=== PATIENT | female | born 1950 | race Caucasian/White ===

== ENCOUNTER 2017-01-13 09:19 | Outpatient (CLI) | payer MEDICARE, OTHER ==
[2017-01-13 18:06] LABS: CREATININE 0.9 mg/dL (0.4-1.0)
== END 2017-01-13 09:20 | disposition home or self-care (01) ==
LOC: LAB.F 09:19
PROVIDERS: ATTEND Internal Medicine Rheumatology
DX: N28.9 Disorder of kidney and ureter, unspecified (principal)
CPT/HCPCS: 36415; 82565; 84520

== ENCOUNTER 2023-06-19 08:00 | Outpatient (CLI) | payer MEDICARE, OTHER | END 2023-06-19 23:59 | disposition home or self-care (01) | LOC: LAB.S 08:00 | PROVIDERS: ATTEND Emergency Medicine | DX: R11.2 Nausea with vomiting, unspecified (principal); Z20.822 Contact with and (suspected) exposure to COVID-19 ==

== ENCOUNTER 2023-06-20 12:39 | Emergency (ER) | payer MEDICARE, OTHER ==
[2023-06-20 13:52] LABS: BASOPHILS % (AUTO) 0.2 %; EOSINOPHILS % (AUTO) 0.1 %; HGB - HEMOGLOBIN 13.6 g/dL (12.0-16.0); LYMPHOCYTES # (AUTO) 2.1 10^3/uL (1.5-3.5); LYMPHOCYTES % (AUTO) 13.1 %; MEAN CORPUSCULAR VOLUME 94.1 fL (81.0-99.0); MEAN PLATELET VOLUME 9.3 fL (7.9-10.8); MONOCYTES # (AUTO) 1.1 10^3/uL (0.0-1.0); MONOCYTES % (AUTO) 6.5 %; NEUTROPHILS # (AUTO) 12.9 10^3/uL (1.5-6.6); NEUTROPHILS % (AUTO) 79.6 %; PLT - PLATELET COUNT 348 10^3/uL (130-450); RED BLOOD COUNT 4.25 10^6/uL (4.20-5.40); RED CELL DISTRIBUTION WIDTH 12.7 % (12.0-15.0); WHITE BLOOD COUNT 16.2 x10^3/uL (4.8-10.8)
[2023-06-20 14:05] LABS: ALBUMIN 4.7 g/dL (3.2-5.5); ALBUMIN/GLOBULIN RATIO 1.7 (1.0-2.2); BILIRUBIN,TOTAL 0.7 mg/dL (0.2-1.0); CALCIUM 10.3 mg/dL (8.5-10.3); CREATININE 1.9 mg/dL (0.6-1.3); POTASSIUM 3.9 mmol/L (3.5-4.5); TOTAL PROTEIN 7.5 g/dL (6.4-8.9)
[2023-06-20] MEDS ORDERED: PROMETHAZINE INJ 12.5 MG in SODIUM CHLORIDE 0.9% 50 ML IV STA (15:05)
[2023-06-20] MEDS ORDERED: SODIUM CHLORIDE 0.9% 1,000 ML IV STA (15:05)
--- NOTE | 2023-06-20 15:06 | ED Physician Documentation ---
PD HPI ABD PAIN - Stated complaint Stated Complaint: VOMITING,LETHARGIC - Chief complaint Chief Complaint: Abd Pain - History obtained from History obtained from: Patient - Additional information Additional information: 73-year-old woman has had multiple abdominal surgeries and a remote SBO necessitating surgery started throwing up 3 days ago after eating ribs. Her also ate the ribs and did not get sick. Since then she has had dry heaving and is unable to keep anything down due to severe nausea despite being given Zofran at the clinic. She had a bowel movement on the first day but has not had a bowel movement since but continues to have flatus. She also has periumbilical pain. Of note she is also had unintended weight loss over the last 6 months measuring about 10 pounds. PD PAST MEDICAL HISTORY - Past Medical History Past Medical History: Yes Cardiovascular: Hypertension, High cholesterol : Incontinence Psych: Depression Musculoskeletal: Chronic back pain - Past Surgical History Past Surgical History: Yes General: Appendectomy, Bowel surgery /CRANE RIGGER: Hysterectomy HEENT: Tonsil/Adenoidectomy - Present Medications Home Medications: Ambulatory Orders Medication Instructions Recorded Confirmed Anastrozole 1 mg PO DAILY 02/16/16 02/16/16 Aspirin 1 tab PO DAILY 02/16/16 02/16/16 Atorvastatin Calcium 40 mg PO QPM 02/16/16 02/16/16 FLUoxetine [PROzac] 10 mg PO DAILY 02/16/16 02/16/16 Hydrocodone/Acetaminophen [Vicodin 1 tab PO Q6HR PRN 02/16/16 02/16/16 5-300 mg Tablet] Trazodone HCl 100 mg PO QPM 02/16/16 02/16/16 methocarbamoL [Methocarbamol] 750 tab PO QPM 02/16/16 02/16/16 Promethazine [Phenergan] 25 mg PO Q6H PRN #14 tab 06/20/23 - Allergies Allergies/Adverse Reactions: Allergies Allergy/AdvReac Type Severity Reaction Status Date / Time meperidine HCl * Allergy Nausea Verified 06/20/23 12:55 [From Demerol] Penicillins Allergy Rash Verified 06/20/23 12:55 - Social History Does the pt smoke?: No Smoking Status: Never smoker Does the pt drink ETOH?: Yes Does the pt have substance abuse?: Yes - Immunizations Immunizations are current?: Yes - POLST Patient has POLST: No PD ED PE NORMAL - Vitals Vital signs reviewed: Yes - General General: Alert and oriented X 3, No acute distress - Cardiac Cardiac: RRR, No murmur - Respiratory Respiratory: No respiratory distress, Clear bilaterally - Abdomen Abdomen: Soft, Other (Multiple surgical scars on the abdomen, slightly diminished but not absent bowel sounds without tenderness.) - Extremities Extremities: No edema, No calf tenderness / cord - Neuro Neuro: Alert and oriented X 3, Normal speech Results - Vitals Vitals: Vital Signs - 24 hr 06/20/23 06/20/23 06/20/23 12:49 14:59 15:24 Temperature 36.1 C L Heart Rate 113 H 88 Respiratory 20 19 20 Rate Blood Pressure 133/67 H 159/91 H O2 Saturation 99 100 06/20/23 06/20/23 06/20/23 16:38 17:14 17:24 Temperature Heart Rate 87 99 96 Respiratory 20 20 19 Rate Blood Pressure 144/78 H 150/64 H O2 Saturation 100 100 96 Oxygen O2 Source Room air - Labs Labs: Laboratory Tests 06/20/23 06/20/23 13:46 13:46 WBC 16.2 H RBC 4.25 Hgb 13.6 Hct 40.0 MCV 94.1 MCH 32.0 H MCHC 34.0 RDW 12.7 Plt Count 348 MPV 9.3 Neut # (Auto) 12.9 H Lymph # (Auto) 2.1 [place] # (Auto) 1.1 H Eos # (Auto) 0.0 Baso # (Auto) 0.0 Absolute Nucleated RBC 0.00 Nucleated RBC % 0.0 Sodium 136 Potassium 3.9 Chloride 98 L Carbon Dioxide 23 Anion Gap 15.0 H BUN 22 H Creatinine 1.9 H Estimated GFR (MDRD) 26 L Glucose 94 Calcium 10.3 Total Bilirubin 0.7 AST 26 ALT 22 Alkaline Phosphatase 64 Total Protein 7.5 Albumin 4.7 Globulin 2.8 Albumin/Globulin Ratio 1.7 Lipase 53 - Rads (name of study) CT a/p Relevant Findings:: Final report received, EMP independent interpretation of test PD Medical Decision Making - ED course ED course: 73-year-old woman has been vomiting for a few days. Benign exam. CBC showing nonspecific leukocytosis. CMP showing some moderate prerenal azotemia. She was hydrated here and a CT was done showing vascular calcifications, and incidental findings in the spine but no cause of vomiting per se and nothing else needing urgent intervention. She is feeling much better after Phenergan here and passed p.o. challenge. Given close return precautions and she request discharge home. Departure - Departure Disposition: , Self Care Clinical Impression: Vomiting Condition: Good Record reviewed to determine appropriate education?: Yes Instructions: ED Nausea Vomiting Prescriptions: Promethazine [Phenergan] 25 mg PO Q6H PRN #14 tab PRN Reason: Nausea / Vomiting Comments: As discussed, your CAT scan did not show any concerning findings, but you have a lot of vascular disease and you are found to be dehydrated here with modestly elevated white count. No infection or blockage on the CT though. He seemed to do better after the Phenergan, I would like you to return on if not better, sooner if worse. Do follow-up with your primary care physician and discuss this visit. Forms: PCP List
[2023-06-20] MEDS ORDERED: PROMETHAZINE 25 MG/1 ML VIAL ONE (15:37)
--- NOTE | 2023-06-20 16:58 | CT Report ---
PROCEDURE: CT abdomen pelvis with contrast INDICATIONS: vomiting, weight loss TECHNIQUE: Helical axial CT of the abdomen and pelvis was obtained after intravenous contrast adminis tration and reformatted in multiple planes. Radiation dose reduction was achieved using automated exp osure control or adjustment of mA and/or kV according to patient size. COMPARISON: None FINDINGS: Lower thorax: The lung bases are clear. Heart size normal. No hiatal hernia. Liver: Normal in size and attenuation. No contour deformity present. Focal fatty infiltration noted adjacent to the falciform ligament Biliary system: No calcified cholelithiasis or pericholecystic inflammation. No evidence of bile du ct dilatation. Pancreas: Unremarkable without mass or inflammation evident. Spleen: Normal in size and density. Adrenals: Normal morphology and density. Reproductive system: Unremarkable as visualized. Urinary system: Normal renal size and attenuation. 4 mm nonobstructive right upper pole calculus in. No hydronephrosis, or solid mass present. Urinary bladder unremarkable. Gastrointestinal system: The bowel appears unremarkable with no evidence of bowel obstruction or inf lammation. The stomach appears unremarkable. Appendix: No findings to suggest acute appendicitis. Peritoneal spaces: No mesenteric or retroperitoneal adenopathy. No free air. No free fluid. Vasculature: Dense atherosclerotic vascular calcification in the aorta results in greater than 50% s tenosis proximally. Abdominal wall: Abdominal wall is intact without evidence of ventral or inguinal hernias. Musculoskeletal: Degenerative disc disease and arthropathy in the lower lumbar spine. There has been posterior lateral fusion without instrumentation. Fusion mass is well incorporated. Moderate to sev ere central stenosis L2-3 IMPRESSION: No acute CT findings in the abdomen and pelvis. Dense atherosclerotic vascular calcification results in 50% proximal aortic stenosis. No aneurysm. Degenerative disc disease and arthropathy lower lumbar spine associated with moderate to severe centr al stenosis L2-3. Lower lumbar spine posterolateral fusion without instrumentation Reviewed by: Beny Aldridge MD on 06/20/2023 3:57 PM AKST Approved by: Beny Aldridge MD on 06/20/2023 3:57 PM AKST Station ID: [id number]
[2023-06-20] MEDS ORDERED: iohexoL-300 100 ML VIAL IVP ONE (18:12)
[2023-06-20 18:18] VITALS: BP 152/75; O2SAT 97
== END 2023-06-20 18:25 | disposition home or self-care (01) ==
LOC: ED 12:39
DX: R11.10 Vomiting, unspecified (principal); E86.0 Dehydration; R79.89 Other specified abnormal findings of blood chemistry
CPT/HCPCS: 36415; 74177; 80053; 83690; 85025; 96365; 96366; 99284; J7040; Q9967

== ENCOUNTER 2024-03-09 12:53 | Outpatient (CLI) | payer MEDICARE, OTHER | END 2024-03-09 12:54 | disposition short-term general hospital (02) | LOC: EMS 12:53 | DX: M79.605 Pain in left leg (principal); M79.604 Pain in right leg | CPT/HCPCS: A0425; A0427; A0888 ==

== ENCOUNTER 2024-04-15 08:33 | Outpatient (CLI) | payer MEDICARE, OTHER | END 2024-04-15 08:34 | disposition home or self-care (01) | LOC: LAB.S 08:33 | PROVIDERS: ATTEND Student in an Organized Health Care Education/Training Program | DX: I73.9 Peripheral vascular disease, unspecified (principal) | CPT/HCPCS: 36416; 85610 ==